=== PATIENT | male | born 1945 | race Caucasian/White ===

== ENCOUNTER 2018-09-15 03:11 | Emergency (ER) | payer MEDICARE, OTHER ==
[2018-09-15] MEDS ORDERED: HYDROmorphone 0.5 MG/0.5 ML Syringe IVPUSH ONE (03:53)
[2018-09-15] MEDS ORDERED: Ondansetron 4 MG/2 ML SDV IVPUSH ONE (03:53)
[2018-09-15] MEDS ORDERED: Sodium Chloride 0.9% 1,000 ML IV SCH (04:00)
--- NOTE | 2018-09-15 04:05 | EDM.PDOC ---
ED HPI GENERAL MEDICAL PROBLEM - General Chief Complaint: Back Pain or Injury Stated Complaint: ABDOMINAL/BACK PAIN Time Seen by Provider: 09/15/18 03:45 Source of Information: Reports: Patient History Limitations: Reports: No Limitations - History of Present Illness INITIAL COMMENTS - FREE TEXT/NARRATIVE: 73-year-old male had a couple of hot dogs and went to bed, developing lower abdominal pain within a half hour. He had intense cramping and spasms of the lower abdomen especially on the left side and also in the back. No fevers, but then developed nausea and vomiting and has had several bouts of emesis prior to coming in. No diarrhea or any bowel movement. No dysuria or urinary frequency. No chest pain or shortness of breath. He has not had previous episodes similar to this, nor has he had any abdominal surgeries in the past. He came in for treatment of "food poisoning". Onset: Sudden (Symptoms started fairly suddenly 5 hours ago) Duration: Hour(s): (5 hours) Location: Reports: Abdomen (Especially across the lower abdomen and left back) Quality: Reports: Sharp, Stabbing Associated Symptoms: Reports: Malaise, Nausea/Vomiting. Denies: Chest Pain, Cough, Fever/Chills, Headaches, Shortness of Breath bilateral back pain Pain Score (Numeric/FACES): 7 - Related Data Allergies Allergy/AdvReac Type Severity Reaction Status Date / Time No Known Allergies Allergy Verified 09/15/18 03:33 Home Meds: Home Meds Albuterol Sulfate [Proair Respiclick] 1 - 2 inh INH ASDIRECTED PRN 09/15/18 [ History] Aspirin [Raymundo Chewable] 81 mg PO DAILY 09/15/18 [History] Cetirizine [ZyrTEC] 10 mg PO DAILY 09/15/18 [History] Glimepiride [Amaryl] 4 mg PO DAILY 09/15/18 [History] Losartan [Cozaar] 12.5 mg PO DAILY 09/15/18 [History] [place]-3 Acid Ethyl Esters [Lovaza] 4 cap PO DAILY 09/15/18 [History] Ranitidine HCl [Ranitidine] 150 mg PO BID 09/15/18 [History] Rosuvastatin [Crestor] 10 mg PO DAILY 09/15/18 [History] SitaGLIPtin [Januvia] 100 mg PO DAILY 09/15/18 [History] Triamcinolone Acetonide [Triamcinolone Acetonide 0.1% Oint] 1 applic TOP ASDIRECTED 09/15/18 [History] Viagra 100 mg PO ASDIRECTED PRN 09/15/18 [History] metFORMIN [Glucophage] 500 mg PO BIDMEALS 09/15/18 [History] Past Medical History Endocrine/Metabolic History: Reports: Diabetes, Type II - Infectious Disease History Infectious Disease History: Reports: Chicken Pox Social & Family History - Family History Family Medical History: Unobtainable - Tobacco Use Smoking Status *Q: Never Smoker Second Hand Smoke Exposure: No - Caffeine Use Caffeine Use: Reports: Coffee - Recreational Drug Use Recreational Drug Use: No ED ROS GENERAL - Review of Systems Review Of Systems: See Below Constitutional: Reports: Malaise. Denies: Fever, Chills HEENT: Reports: No Symptoms Respiratory: Reports: No Symptoms Cardiovascular: Reports: No Symptoms GI/Abdominal: Reports: Abdominal Pain, Nausea, Vomiting. Denies: Constipation, Diarrhea : Reports: No Symptoms Skin: Reports: No Symptoms Neurological: Reports: No Symptoms ED EXAM, GI/ABD - Physical Exam Exam: See Below Exam Limited By: No Limitations General Appearance: Alert, Mild Distress Eyes: Bilateral: Normal Appearance (No jaundice) Head: Atraumatic Respiratory/Chest: No Respiratory Distress, Lungs Clear Cardiovascular: Regular Rate, Rhythm GI/Abdominal Exam: Normal Bowel Sounds, Soft, Tender (Abdomen is soft but he does react with tenderness across the suprapubic and right lower quadrant, no rebound tenderness) Extremities: Normal Inspection Neurological: Alert, Oriented Psychiatric: Anxious Skin Exam: Warm, Dry Course - Vital Signs Last Recorded V/S: Last Vital Signs Temp 96.3 F 09/15/18 03:35 Pulse 109 H 09/15/18 03:35 Resp 14 09/15/18 03:35 BP 162/88 H 09/15/18 03:35 Pulse Ox 97 09/15/18 03:35 - Orders/Labs/Meds Labs: Laboratory Tests 09/15/18 09/15/18 Range/Units 04:00 04:00 WBC 7.3 (4.5-11.0) K/uL RBC 4.04 L (4.30-5.90) M/uL Hgb 12.6 (12.0-15.0) g/dL Hct 36.9 L (40.0-54.0) % MCV 91 (80-98) fL MCH 31 (27-31) pg MCHC 34 (32-36) % Plt Count 129 L (150-400) K/uL Neut % (Auto) 81 H (36-66) % Lymph % (Auto) 14 L (24-44) % [place] % (Auto) 4 (2-6) % Eos % (Auto) 0 L (2-4) % Baso % (Auto) 0 (0-1) % Sodium 138 L (140-148) mmol/L Potassium 4.0 (3.6-5.2) mmol/L Chloride 97 L (100-108) mmol/L Carbon Dioxide 25 (21-32) mmol/L Anion Gap 20.0 H (5.0-14.0) mmol/L BUN 38 H (7-18) mg/dL Creatinine 1.3 (0.8-1.3) mg/dL Est Cr Clr Drug Dosing 49.69 mL/min Estimated GFR (MDRD) 54 L (>60) Glucose 192 H (74-106) mg/dL Calcium 9.7 (8.5-10.1) mg/dL Total Bilirubin 0.5 (0.2-1.0) mg/dL AST 47 H (15-37) U/L ALT 61 (12-78) U/L Alkaline Phosphatase 61 (46-116) U/L Total Protein 7.6 (6.4-8.2) g/dL Albumin 3.7 (3.4-5.0) g/dL Globulin 3.9 H (2.3-3.5) g/dL Albumin/Globulin Ratio 1.0 L (1.2-2.2) Lipase 145 (73-393) U/L Meds: Medications Discontinued Medications Generic Name Dose Route Start Last Admin Trade Name Freq PRN Reason Stop Dose Admin Hydromorphone HCl 0.5 mg 09/15/18 03:53 09/15/18 04:08 Dilaudid IVPUSH 09/15/18 03:54 0.5 mg ONETIME ONE Administration Sodium Chloride 1,000 mls @ 500 mls/hr 09/15/18 04:00 09/15/18 04:07 Normal Saline IV 500 mls/hr ASDIRECTED FELECIA Administration Ketorolac Tromethamine 30 mg 09/15/18 04:58 09/15/18 05:08 Toradol IVPUSH 09/15/18 04:59 30 mg ONETIME ONE Administration Ondansetron HCl 4 mg 09/15/18 03:53 09/15/18 04:04 Zofran IVPUSH 09/15/18 03:54 4 mg ONETIME ONE Administration Tamsulosin HCl 0.4 mg 09/15/18 04:58 09/15/18 06:14 Flomax PO 09/15/18 04:59 0.4 mg ONETIME ONE Administration - Re-Assessments/Exams Free Text/Narrative Re-Assessment/Exam: 09/15/18 04:03 An IV was started, patient was given normal saline with 0.5 mg of Dilaudid in 4 mg of Zofran. CBC, CMP, lipase were obtained and a CT of the abdomen to rule out renal stone, bowel obstruction or other significant causes of abdominal pain 09/15/18 05:00 CT confirmed a 4 mm left ureteral stone with some hydronephrosis. Patient was then given 30 mg of IV Toradol and 0.4 mg Flomax. He was feeling better and was discharged home with 10 additional doses of ketorolac. He will return in 24-48 hours if not improving. 09/15/18 05:01 Labs were reassuring, white count and hemoglobin normal. Departure - Departure Time of Disposition: 06:29 Disposition: Home, Self-Care 01 Clinical Impression: Renal calculus, left, Renal colic on left side - Discharge Information Instructions: Kidney Stones, [id number] Referrals: Jeromy Moses MD [Primary Care Provider] - Forms: ED Department Discharge Care Plan Goals: Drink lots of water, take one pain pill every 6 hours until pain is completely gone. Return if worsening such as uncontrolled pain, persistent vomiting or fever.
--- NOTE | 2018-09-15 04:43 | CRLCT ---
INDICATION: Abdominal. Pain TECHNIQUE: CT Abdomen and pelvis without i.v. contrast. Coronal and sagittal reformats were obtained. COMPARISON: None FINDINGS: Lower chest: Unremarkable. Liver: Moderate diffuse fatty infiltration of the liver is noted with mild focal fatty sparing near the gallbladder fossa. Spleen: Unremarkable. Pancreas: Unremarkable. Gallbladder: Unremarkable. Kidney: There is a 4 mm stone in the proximal left ureter causing mild left renal pelvic caliectasis and perinephric edema. The right kidney and ureter are unremarkable in appearance. Adrenal: Unremarkable. Bowel: Unremarkable. The appendix is normal in appearance and size. Vascular: Severe diffuse atherosclerotic calcifications of the abdominal aorta and its tributaries are present. Lymph: Unremarkable. Peritoneum: Unremarkable. No pneumoperitoneum is seen. No significant ascites is noted. Pelvis: Unremarkable. Soft tissue: Unremarkable. Bone: Unremarkable for age. IMPRESSION: 1. There is a 4 mm stone in the proximal left ureter causing mild left renal pelvic caliectasis and perinephric edema. Dictated by Juvenal Croft MD @ 09/15/2018 4:41:24 AM Please note that all CT scans at this facility use dose modulation, iterative reconstruction, and/or weight-based dosing when appropriate to reduce radiation dose to as low as reasonably achievable. Dictated by: Juvenal Croft MD @ 09/15/2018 04:41:31 (Electronically Signed)
[2018-09-15] MEDS ORDERED: Tamsulosin 0.4 MG Cap.ER PO ONE (04:58)
[2018-09-15] MEDS ORDERED: Ketorolac 30 MG/ML SDV IVPUSH ONE (04:58)
== END 2018-09-15 06:31 | disposition home or self-care (01) ==
LOC: JP.ED 03:11
DX: N20.2 Calculus of kidney with calculus of ureter (principal); E11.9 Type 2 diabetes mellitus without complications; Z79.899 Other long term (current) drug therapy; Z79.82 Long term (current) use of aspirin; Z79.84 Long term (current) use of oral hypoglycemic drugs
CPT/HCPCS: 36415; 74176; 80053; 83690; 85025; 96361; 96374; 96375; 99284; A9270; J1170; J1885; J2405; J7030; 99283

== ENCOUNTER 2018-09-22 23:33 | Emergency (ER) | payer MEDICARE, OTHER ==
--- NOTE | 2018-09-23 00:23 | EDM.PDOC ---
ED HPI GENERAL MEDICAL PROBLEM - General Chief Complaint: Genitourinary Problem Stated Complaint: BLADDER ISSUES Time Seen by Provider: 09/23/18 00:19 Source of Information: Reports: Patient, Family, RN Notes Reviewed History Limitations: Reports: No Limitations - History of Present Illness INITIAL COMMENTS - FREE TEXT/NARRATIVE: 73-year-old gentleman presents emergency department today complaint of urgency and dysuria with urination, states his had symptoms for a day or 2 no fevers recent history of kidney stone Lower Abdomen Pain Score (Numeric/FACES): 6 - Related Data Allergies Allergy/AdvReac Type Severity Reaction Status Date / Time No Known Allergies Allergy Verified 09/23/18 00:19 Home Meds: Home Meds Albuterol Sulfate [Proair Respiclick] 1 - 2 inh INH ASDIRECTED PRN 09/15/18 [ History] Aspirin [Raymundo Chewable] 81 mg PO DAILY 09/15/18 [History] Cetirizine [ZyrTEC] 10 mg PO DAILY 09/15/18 [History] Glimepiride [Amaryl] 4 mg PO DAILY 09/15/18 [History] Losartan [Cozaar] 12.5 mg PO DAILY 09/15/18 [History] [place]-3 Acid Ethyl Esters [Lovaza] 4 cap PO DAILY 09/15/18 [History] Ranitidine HCl [Ranitidine] 150 mg PO BID 09/15/18 [History] Rosuvastatin [Crestor] 10 mg PO DAILY 09/15/18 [History] SitaGLIPtin [Januvia] 100 mg PO DAILY 09/15/18 [History] Triamcinolone Acetonide [Triamcinolone Acetonide 0.1% Oint] 1 applic TOP ASDIRECTED 09/15/18 [History] Viagra 100 mg PO ASDIRECTED PRN 09/15/18 [History] metFORMIN [Glucophage] 500 mg PO BIDMEALS 09/15/18 [History] Past Medical History Cardiovascular History: Reports: High Cholesterol, Hypertension Gastrointestinal History: Reports: GERD, Other (See Below) Other Gastrointestinal History: inguinal hernia Musculoskeletal History: Reports: Fracture, Other (See Below) Other Musculoskeletal History: Fx left great toe Endocrine/Metabolic History: Reports: Diabetes, Type II - Infectious Disease History Infectious Disease History: Reports: Chicken Pox Social & Family History - Family History Family Medical History: Unobtainable - Caffeine Use Caffeine Use: Reports: Coffee ED ROS GENERAL - Review of Systems Review Of Systems: See Below Constitutional: Denies: Fever, Chills HEENT: Reports: No Symptoms Respiratory: Reports: No Symptoms Cardiovascular: Reports: No Symptoms GI/Abdominal: Denies: Abdominal Pain, Nausea : Reports: Dysuria, Frequency ED EXAM, GI/ABD - Physical Exam Exam: See Below Exam Limited By: No Limitations General Appearance: Alert, WD/WN, No Apparent Distress Respiratory/Chest: No Respiratory Distress, Lungs Clear, Normal Breath Sounds, No Accessory Muscle Use, Chest Non-Tender Cardiovascular: Regular Rate, Rhythm, No Murmur GI/Abdominal Exam: Soft, Non-Tender Back Exam: No: CVA Tenderness (R), CVA Tenderness (L) Course - Vital Signs Last Recorded V/S: Last Vital Signs Temp 96.1 F 09/23/18 00:21 Pulse 108 H 09/23/18 00:21 Resp 18 09/23/18 00:21 BP 170/90 H 09/23/18 01:04 Pulse Ox 96 09/23/18 01:04 - Orders/Labs/Meds Orders: Active Orders 24 hr Category Date Time Status Bladder Scan [RC] ASDIRECTED Care 09/22/18 23:34 Active Batista Catheter Insertion [Insert Urinary Catheter] [OM. Care 09/23/18 00:45 Ordered PC] Q24H Urinary Catheter Assessment [RC] ASDIRECTED Care 09/23/18 00:40 Active CULTURE URINE [RM] Urgent Lab 09/23/18 01:00 Received Labs: Laboratory Tests 09/23/18 09/23/18 09/23/18 Range/Units 00:27 01:10 01:10 WBC 11.3 H (4.5-11.0) K/uL RBC 4.09 L (4.30-5.90) M/uL Hgb 12.6 (12.0-15.0) g/dL Hct 37.5 L (40.0-54.0) % MCV 92 (80-98) fL MCH 31 (27-31) pg MCHC 34 (32-36) % Plt Count 169 (150-400) K/uL Neut % (Auto) 69 H (36-66) % Lymph % (Auto) 19 L (24-44) % [place] % (Auto) 11 H (2-6) % Eos % (Auto) 1 L (2-4) % Baso % (Auto) 0 (0-1) % Sodium 140 (140-148) mmol/L Potassium 3.9 (3.6-5.2) mmol/L Chloride 102 (100-108) mmol/L Carbon Dioxide 26 (21-32) mmol/L Anion Gap 12.4 (5.0-14.0) mmol/L BUN 33 H (7-18) mg/dL Creatinine 1.6 H (0.8-1.3) mg/dL Est Cr Clr Drug Dosing 40.38 mL/min Estimated GFR (MDRD) 43 L (>60) Glucose 150 H (74-106) mg/dL Calcium 9.4 (8.5-10.1) mg/dL Total Bilirubin 0.4 (0.2-1.0) mg/dL AST 36 (15-37) U/L ALT 52 (12-78) U/L Alkaline Phosphatase 62 (46-116) U/L Total Protein 6.9 (6.4-8.2) g/dL Albumin 3.4 (3.4-5.0) g/dL Globulin 3.5 (2.3-3.5) g/dL Albumin/Globulin Ratio 1.0 L (1.2-2.2) Urine Color Yellow Urine Appearance Cloudy Urine pH 5.0 (4.5-8.0) Ur Specific [place] 1.025 (1.008-1.030) Urine Protein 100 H (NEGATIVE) mg/dL Urine Glucose (UA) Normal (NEGATIVE) mg/dL Urine Ketones Negative (NEGATIVE) mg/dL Urine Occult Blood Moderate (NEGATIVE) Urine Nitrite Positive H (NEGAITVE) Urine Bilirubin Negative (NEGATIVE) Urine Urobilinogen Normal (NORMAL) mg/dL Ur Leukocyte Esterase Negative (NEGATIVE) Urine RBC 5-10 H (0-5) Urine WBC Not seen (0-5) Ur Epithelial Cells Not seen Amorphous Sediment Many Urine Bacteria Moderate Urine Mucus Not seen Meds: Medications Discontinued Medications Generic Name Dose Route Start Last Admin Trade Name Freq PRN Reason Stop Dose Admin Lidocaine HCl 10 ml 09/23/18 00:40 09/23/18 00:51 Xylocaine 2% Jelly MUCMEM 09/23/18 00:41 10 ml ONETIME ONE Administration Departure - Departure Time of Disposition: 01:51 Disposition: Home, Self-Care 01 Condition: Fair Clinical Impression: UTI, Urinary tract infectious disease - Discharge Information Instructions: Urinary Tract Infection, Adult Referrals: PCP,None [Primary Care Provider] - Forms: ED Department Discharge Additional Instructions: Take full course of antibiotics, continue to push fluids, Please followup with your primary care provider in 3-5 days if not better, please call return to the emergency department with worsening of symptoms. - My Orders Last 24 Hours: My Active Orders 09/22/18 23:34 Bladder Scan [RC] ASDIRECTED 09/23/18 00:40 Urinary Catheter Assessment [RC] ASDIRECTED 09/23/18 00:45 Batista Catheter Insertion [Insert Urinary Catheter] [OM.PC] Q24H 09/23/18 01:00 CULTURE URINE [RM] Urgent - Assessment/Plan Last 24 Hours: My Active Orders 09/22/18 23:34 Bladder Scan [RC] ASDIRECTED 09/23/18 00:40 Urinary Catheter Assessment [RC] ASDIRECTED 09/23/18 00:45 Batista Catheter Insertion [Insert Urinary Catheter] [OM.PC] Q24H 09/23/18 01:00 CULTURE URINE [RM] Urgent Plan: Assessment Acuity = acute Site and laterality = urinary tract infection Etiology = probable bacterial cause Manifestations = dysuria] Location of injury = Home Lab values = [CBC unremarkable CMP reveals a creatinine elevated 1.6 consistent acute renal failure stage G IIIB urinalysis positive for nitrates cultures pending Plan We'll treat empirically with Bactrim DS one tab by mouth twice a day 7 days follow-up primary care in 3-5 days if no improvement This note was dictated using [employer] voice recognition software please call with any questions on syntax or grammar.
[2018-09-23] MEDS ORDERED: Lidocaine 2% Jelly 10 ML Urojet MUCMEM ONE (00:40)
== END 2018-09-23 02:05 | disposition home or self-care (01) ==
LOC: JP.ED 23:33
DX: N39.0 Urinary tract infection, site not specified (principal); I10 Essential (primary) hypertension; E11.9 Type 2 diabetes mellitus without complications; Z79.84 Long term (current) use of oral hypoglycemic drugs; Z79.899 Other long term (current) drug therapy; Z79.82 Long term (current) use of aspirin
CPT/HCPCS: 36415; 51798; 80053; 81001; 85025; 87086; 87088; 87186; 99283; 99284

== ENCOUNTER 2019-11-24 07:42 | Day surgery (SDC) | payer MEDICARE, OTHER ==
[~2019-11-24 07:42] MED LIST: Sodium Chloride 0.9% 1,000 ML IV SCH
[2019-11-24] MEDS ORDERED: Midazolam 1 MG/ML 2 ML SDV ONE (08:24)
[2019-11-24] MEDS ORDERED: Propofol 200 MG/20 ML SDV ONE (08:24)
[2019-11-24] MEDS ORDERED: fentaNYL 100 MCG/2 ML SDV ONE (08:24)
--- NOTE | 2019-11-24 12:33 | OR ---
DATE OF PROCEDURE: 11/24/2019 SURGEON: Vasu Quinones MD PROCEDURE: Colonoscopy. FINDINGS: Cecal polyp, approximately 5 mm, completely removed using cold biopsy forceps. COMPLICATIONS: None. PAIN MANAGEMENT PHYSICIAN: None. ANESTHESIA: MAC. PREOPERATIVE DIAGNOSIS: Screening colonoscopy. POSTOPERATIVE DIAGNOSIS: Screening colonoscopy. RISKS: Risks, benefits, alternatives, and limitations including, but not limited to infection, bleeding, and perforation were explained to the patient, who wished to proceed. PROCEDURE IN DETAIL: The patient was placed in left lateral decubitus position. Digital rectal exam was performed without abnormality. Scope was introduced and advanced atraumatically to the ileocecal valve. A photo was taken of this. Scope was brought back through the ascending, transverse, descending colon, and retroflexed. No evidence of old or new blood. No masses. No abnormality on retroflexion. No colitis. Greater than 8 minutes was spent removing the scope. The patient tolerated the procedure well. Vasu Quinones MD /[id number]
== END 2019-11-24 10:05 | disposition home or self-care (01) ==
LOC: JP.SDS 07:42
PROVIDERS: ATTEND Surgery
DX: Z12.11 Encounter for screening for malignant neoplasm of colon (principal); D12.0 Benign neoplasm of cecum; J45.909 Unspecified asthma, uncomplicated; F17.210 Nicotine dependence, cigarettes, uncomplicated; E11.9 Type 2 diabetes mellitus without complications
CPT/HCPCS: 45380; J2250; J2704; J3010; J7030; 88305

== ENCOUNTER 2021-10-26 07:39 | Day surgery (SDC) | payer MEDICARE, BC ==
[2021-10-26] MEDS ORDERED: Sodium Chloride 0.9% 1,000 ML IV SCH (08:25)
[2021-10-26] MEDS ORDERED: fentaNYL 100 MCG/2 ML SDV ONE (08:32)
[2021-10-26] MEDS ORDERED: Propofol 200 MG/20 ML SDV ONE (08:32)
[2021-10-26] MEDS ORDERED: Midazolam 1 MG/ML 2 ML SDV ONE (08:33)
== END 2021-10-26 11:07 | disposition home or self-care (01) ==
LOC: JP.SDS 07:39
PROVIDERS: ATTEND Surgery
DX: Z12.11 Encounter for screening for malignant neoplasm of colon (principal); K21.9 Gastro-esophageal reflux disease without esophagitis; K22.89 Other specified disease of esophagus
CPT/HCPCS: 43239; G0121; J2250; J2704; J3010; J7030; 88305